=== PATIENT | female | born 1985 | race American Indian/Alaskan Native ===

== ENCOUNTER 2017-03-12 15:01 | Outpatient (CLI) | payer OTHER ==
--- NOTE | 2017-03-12 16:20 | XRay Report ---
Bilateral knees: Bilateral pain. Standing images demonstrate unremarkable findings of the left knee with exception of mild subchondral cyst along the posterior patellar margin. Superior and inferior spurs as well as lateral spurring is identified involving the patella of the right knee. The retropatellar spaces are well-preserved bilaterally as are the knee joints, articular surfaces, and knee alignment. No swelling and no effusions identified. Impression: Mild bilateral degenerative patella changes.
== END 2017-03-12 15:02 | disposition home or self-care (01) ==
LOC: SPVIMAG 15:01
PROVIDERS: ATTEND Orthopaedic Surgery
DX: M17.0 Bilateral primary osteoarthritis of knee (principal)